=== PATIENT | female | born 1990 | race Caucasian/White ===

== ENCOUNTER 2016-05-06 09:20 | Inpatient (IN) | payer OTHER ==
[~2016-05-06] VITALS: Ht 160 cm; Wt 76.0 kg
[2016-05-06] VITALS (43 sets, daily range): BP systolic 125–165; BP diastolic 65–102
[~2016-05-06 09:20] MED LIST: /AUGM875TA OR; /CELE20CA OR; COLA100C2 OR; MILKSUS OR; VICO5TAB OR
[2016-05-06] MEDS ORDERED: ACET50TA PO (10:19)
[2016-05-06] MEDS ORDERED: PRENTAB9 PO (10:19)
--- NOTE | 2016-05-06 10:25 | IPNPDOC ---
Obstetrical Progress Note Date of Service The patient was seen on 05/06/16 at 10:17. Progress Note BRIEF SUMMARY OF LABOR AND DELIVERY: Patient is a 25 year-old G1 sent from clinic for elevated blood pressure of 134/90 and a dull CAMPOS. LABS AND OTHER LABS ORDERED THIS ADMISSION: Pre-e labs ordered SUBJECTIVE: Patient reports a dull CAMPOS without visual changes. States she has irregular CTXs that have not changed over the past week. She denies LOF, DFM, and VB. OBJECTIVE: VS- mild range BP, all other VS WNL, afebrile FHR- BL-120, moderate variability, + accels, no decels CTX- Q 1-3 min, lasting <90 sec, unable to palpate, Resting tone palpated as soft. CURRENT LABS: Please see below. ASSESSMENT: 25 yo G1 @ 38+2 by LMP([id number]) presents to L&D with mild range blood pressures. PLAN: continue to monitor and assess, serial blood pressures, pre-e labs, tylenol for CAMPOS, reassess in 2 hours or prn ALYCIA ORTIZ CNM May 06, 2016 10:25
[2016-05-06] MEDS: ACETAMINOPHEN 500 MG TAB PO ONE ×2 (10:30→10:52)
[2016-05-06 10:59] LABS: ALT/SGPT 11 U/L (12-78); AST/SGOT 13 U/L (15-37); BILIRUBIN,TOTAL 0.4 MG/DL (0.2-1.0); CREATININE FOR GFR 0.58 MG/DL (0.55-1.02); GLOMERULAR FILTRATION RATE > 60.0 (>60); URIC ACID 2.9 MG/DL (2.6-6.0)
[2016-05-06 12:13] LABS: MEAN CORPUSCULAR HEMOGLOBIN 26.7 pg (27.0-33.0); MEAN CORPUSCULAR HGB CONC 33.9 g/dl (32.0-36.5); MEAN CORPUSCULAR VOLUME 78.8 fl (80.0-96.0); WHITE BLOOD COUNT 9.7 K/mm3 (4.0-10.0)
--- NOTE | 2016-05-06 14:51 | HPEPDOC ---
Obstetrical History & Physical General Date of Admission May 06, 2016 at 13:58 History of Present Illness 25 yo G1 @ 38+2 by LMP([id number]) presents to L&D with mild range blood pressures. Labs drawn PCR-0.34. Admitted to L&D for pre-e without severe features. GBS neg. Denies DFM, LOF, CTXs and VB. Chief Complaint: Pre-eclamsia Information Provided By: Patient Age: 25 : 1 Term: 0 Pre-term: 0 Abortions: 0 Livin Care Care: Good Care Dating Final EDC: May 18, 2016 Final EDC for Daily Update: May 18, 2016 Final EDC by: LMP LMP: August 12, 2015 Estimated Date of Confinement: May 18, 2016 EGA at Admission: 38.2 Antepartum Course Diagnos(e)s 1. Rh negative- Rhogam given on [id number] 2. 34 wk HERBERT 3. pre-e without severe features 4. 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 GERD 2. IBS Surgical History: Appendectomy (2010), Regan teeth (2010) Family History Significant Family History: No pertinent family hx Social History Marital Status: Family situation: Spouse/partner home Psychosocial History: No pertinent psych hx * Smoker: non-smoker Alcohol: denies Drugs: denies Abuse Violence Screening Have you been hit/kicked/slapp: No Have you been sexually assault: No Imunizations Tdap status: current ([id number]) Influenza Status: current ([id number]) Allergies Coded Allergies: No Known Drug Allergy (Verified Allergy, Unknown, 06/24/12) Medications Scheduled Multivitamins/ ( 27-0.8 mg) 1 Tab Tab 1 TAB PO DAILY Miscellaneous Medications Acetaminophen (Mapap) 500 Mg Tab 1,000 MG PO HEADACHE Physical Examination Physical Examination GENERAL: A&O x 3 BREAST: . ABDOMEN: Gravid non-tender EFW: 3200 grams FETUS: VTX by SVE and by Stefan. HEART RATE: RRR, no m/r/g LUNGS: CTA EXTREMITIES: +2 edema bilat LE. No clonus. DTRs +2 Vital Signs/I&O Vital Signs Date Time Temp Pulse Resp B/P Pulse Ox O2 Delivery O2 Flow Rate FiO2 05/06/16 11:14 71 16 135/86 05/06/16 09:47 98.7 Laboratory Data 24H LABS Laboratory Tests 2 05/06/16 10:24: Creatinine 0.58, Aspartate Amino Transf (AST/SGOT) 13L, Alanine Aminotransferase (ALT/SGPT) 11L, Lactate Dehydrogenase 185, Total Bilirubin 0.4 , Uric Acid 2.9, Glomerular Filtration Rate > 60.0 05/06/16 10:25: Syphilis Serology NONREACTIVE 05/06/16 11:13: Urine Random Creatinine 60.9, Urine Random Total Protein 21.3H 05/06/16 14:31: Serology Scanned Report Hepatitis B Testing CBC/BMP Laboratory Tests 05/06/16 10:22 Red Blood Count 3.73 L, Mean Corpuscular Volume 78.8 L, Mean Corpuscular Hemoglobin 26.7 L, Mean Corpuscular Hemoglobin Concent 33.9, Red Cell Distribution Width 15.0 H 05/06/16 10:24 Aspartate Amino Transf (AST/SGOT) 13 L, Alanine Aminotransferase (ALT/SGPT) 11 L , Lactate Dehydrogenase 185, Total Bilirubin 0.4, Uric Acid 2.9 Urine Culture: No Growth Pertinent Laboratoy Data Blood Type: O- RBC Antibody Screen: Negative HIV: Negative Hepatitis B: Negative Hepatitis C: Unknown Rapid Plasma Reagin: Nonreactive Rubella: Immune Chlamydia/Gonorrhea: Negative Group B Streptococcus: Negative Quad Screen Test: Declined Cystic Fibrosis: Unknown Glucose Tolerance Test: 95 Anatomy Ultrasound Ultrasound Date: Dec 19, 2015 Placenta Location: Posterior Normal Anatomy: No (unable to evaluate d/t gestational age) Placenta Previa: No Estimated Weight (grams): 233 Other Ultrasounds Other Ultrasounds [id number] grams; 31%; normal anatomy; placenta posterior and fundal, no previa Steroid Therapy Steroid Therapy: No Vaginal Examination Dilation: 1cm Effacement: 75% Station: -2 Cervical Consistency: Medium Cervical Position: Posterior Presentation: Cephalic presentation Position: Vertex (occiput) Assessment Heart Rate (FHR): 135 Variability: Moderate Accelerations: Positive Decelerations: None Tocometer Contractions: Yes Frequency: irregular Duration: less than 90 seconds Strength: palpated as mild, resting tone palp/soft Multi-drug resistant Organism: No history of MDRO Assessment/Plan Assessment 25 yo G1 @ 38+2 by LMP([id number]) presents to L&D with mild range blood pressures. Labs drawn PCR-0.34. Admitted to L&D for pre-e without severe features. GBS neg. Denies DFM, LOF, CTXs and VB. 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 Diet: regular GBS negative Labs and IV per unit protocol Q 12 hour pre-e panel LR 1000 ml bolus once in active labor and then 125 ml/hr Ramos bulb to be placed now with 60 ml NS Anticipate C-S as appropriate. ALYCIA ORTIZ CNM May 06, 2016 14:51
--- NOTE | 2016-05-06 15:07 | IPNPDOC ---
Obstetrical Progress Note Date of Service The patient was seen on 05/06/16 at 15:03. Progress Note [id number] @ 1500 25 yo G1 @ 38+2 by LMP([id number]) presents to L&D with mild range blood pressures. Labs drawn PCR-0.34. Admitted to L&D for pre-e without severe features. GBS neg. Denies DFM, LOF, CTXs and VB. S: Denies CAMPOS, visual changes, n/v and RUQ pain O: Mild range blood pressures noted. All other VS WNL. Rincon bulb placed to traction with 60 ml NS A: 25 yo G1 @ 38+2 by LMP([id number]) IOL d/t pre-e without severe features. CAT I FHR tracing. P: continue to monitor and assess, reassess Q 1 hour rincon bulb, remove rincon bulb in 12 hours if not expelled, initiate magnesium if BP > 160 or 110, reassess in 4 hours or prn VS, I&O, 24H, [facility] Vital Signs/I&O Vital Signs Date Time Temp Pulse Resp B/P Pulse Ox O2 Delivery O2 Flow Rate FiO2 05/06/16 14:48 86 16 139/80 05/06/16 09:47 98.7 Laboratory Data 24H LABS Laboratory Tests 2 05/06/16 10:24: Creatinine 0.58, Aspartate Amino Transf (AST/SGOT) 13L, Alanine Aminotransferase (ALT/SGPT) 11L, Lactate Dehydrogenase 185, Total Bilirubin 0.4 , Uric Acid 2.9, Glomerular Filtration Rate > 60.0 05/06/16 10:25: Syphilis Serology NONREACTIVE 05/06/16 11:13: Urine Random Creatinine 60.9, Urine Random Total Protein 21.3H 05/06/16 14:31: Serology Scanned Report Hepatitis B Testing CBC/BMP Laboratory Tests 05/06/16 10:22 Red Blood Count 3.73 L, Mean Corpuscular Volume 78.8 L, Mean Corpuscular Hemoglobin 26.7 L, Mean Corpuscular Hemoglobin Concent 33.9, Red Cell Distribution Width 15.0 H 05/06/16 10:24 Aspartate Amino Transf (AST/SGOT) 13 L, Alanine Aminotransferase (ALT/SGPT) 11 L , Lactate Dehydrogenase 185, Total Bilirubin 0.4, Uric Acid 2.9 ALYCIA ORTIZM May 06, 2016 15:07
[2016-05-06] MEDS ORDERED: LR 1,000 ML IV SCH (18:57)
[2016-05-06] MEDS ORDERED: OXYTOCIN DRIP 30 UNITS in APPROPRIATE DILUENT 1 EA IV SCH (19:00)
--- NOTE | 2016-05-06 19:04 | IPNPDOC ---
Obstetrical Progress Note Date of Service The patient was seen on 05/06/16 at 18:59. Progress Note [id number] @ 1850 25 yo G1 @ 38+2 by LMP([id number]) presents to L&D with mild range blood pressures. Labs drawn PCR-0.34. Admitted to L&D for pre-e without severe features. GBS neg. S: Comfortable resting in bed. Denies CAMPOS, visual changes, n/v and RUQ pain O: VS- mild range blood pressures mixed with normal blood pressures, all other VS WNL, afebrile FHR- BL 125, moderate variability, + accels, no decels CTX- irregular and intermittent SVE- deferred Rincon removed intact A: 25 yo G1 @ 38+2 by LMP with pre-e without severe features. CAT I FHR tracing. Cervical change noted with rincon coming out. P: continue to monitor and assess, reassess in 2 hours or prn, initiate pitocin IOL, report any severe range blood pressures, epidural when pt desires. Report given to Dr. Vann @ 1930. VS, I&O, 24H, [facility] Vital Signs/I&O Vital Signs Date Time Temp Pulse Resp B/P Pulse Ox O2 Delivery O2 Flow Rate FiO2 05/06/16 18:40 73 16 126/80 05/06/16 09:47 98.7 Laboratory Data 24H LABS Laboratory Tests 2 05/06/16 10:24: Creatinine 0.58, Aspartate Amino Transf (AST/SGOT) 13L, Alanine Aminotransferase (ALT/SGPT) 11L, Lactate Dehydrogenase 185, Total Bilirubin 0.4 , Uric Acid 2.9, Glomerular Filtration Rate > 60.0 05/06/16 10:25: Syphilis Serology NONREACTIVE 05/06/16 11:13: Urine Random Creatinine 60.9, Urine Random Total Protein 21.3H 05/06/16 14:31: Serology Scanned Report Hepatitis B Testing CBC/BMP Laboratory Tests 05/06/16 10:22 Red Blood Count 3.73 L, Mean Corpuscular Volume 78.8 L, Mean Corpuscular Hemoglobin 26.7 L, Mean Corpuscular Hemoglobin Concent 33.9, Red Cell Distribution Width 15.0 H 05/06/16 10:24 Aspartate Amino Transf (AST/SGOT) 13 L, Alanine Aminotransferase (ALT/SGPT) 11 L , Lactate Dehydrogenase 185, Total Bilirubin 0.4, Uric Acid 2.9 ALYCIA ORTIZ CNM May 06, 2016 19:04
[2016-05-06] MEDS ORDERED: ACETAMINOPHEN TAB 650MG DOSE (2X325MG) PO ONE (20:30)
--- NOTE | 2016-05-06 23:54 | IPNPDOC ---
Text Note Date of Service The patient was seen on 05/06/16. NOTE Assumed care at 1930 after SBAR from [facility] BP's with some mild range elevations, no severe range for many hours. No CAMPOS, responded to tylenol. NST Cat 1, reg ctx's, pit at 12 mu/min Cx 4/75/-3/vtx well applied a/p: Doing well, but not active labor yet. Plan on recheck in ~4 hrs, sooner prn. Sessions VS,Rossy, I+O VSRossy I+O Laboratory Tests 05/06/16 10:22 Red Blood Count 3.73 L, Mean Corpuscular Volume 78.8 L, Mean Corpuscular Hemoglobin 26.7 L, Mean Corpuscular Hemoglobin Concent 33.9, Red Cell Distribution Width 15.0 H 05/06/16 10:24 Aspartate Amino Transf (AST/SGOT) 13 L, Alanine Aminotransferase (ALT/SGPT) 11 L , Lactate Dehydrogenase 185, Total Bilirubin 0.4, Uric Acid 2.9 Vital Signs Date Time Temp Pulse Resp B/P Pulse Ox O2 Delivery O2 Flow Rate FiO2 05/06/16 23:11 97.8 67 16 136/74 SESSIONS,ELANA Blackwood MD May 06, 2016 23:54
[2016-05-07] VITALS (25 sets, daily range): BP systolic 126–195; BP diastolic 69–95
[2016-05-07] MEDS ORDERED: FENTANYL 2MCG/ML ROPIVACAINE 0.2% NACL 250 ML CADD As Ordered ONE (02:02)
[2016-05-07] MEDS ORDERED: NALOXONE INJ 0.4 MG/1 ML VIAL (J2310) IV PRN (03:00)
[2016-05-07] MEDS ORDERED: EPIDURAL COMMENT XX SCH (03:00)
[2016-05-07] MEDS ORDERED: diphenhydrAMINE INJ 50MG/ML VIAL (J1200) IV PRN (03:00)
[2016-05-07] MEDS ORDERED: FENTANYL/ROPIVACAINE/NACL CADD 250 ML EPIDURAL SCH (03:00)
[2016-05-07] MEDS ORDERED: EPIDURAL/PCA KEYS XX PRN (03:00)
[2016-05-07] MEDS ORDERED: REFRIGERATOR IV KEYS XX PRN (03:00)
[2016-05-07] MEDS ORDERED: LACTATED RINGER'S 1000 ML IV PRN (03:00)
[2016-05-07] MEDS ORDERED: ONDANSETRON 4MG/2ML VIAL (J2405) IV PRN (03:00)
--- NOTE | 2016-05-07 05:01 | IPNPDOC ---
Text Note Date of Service The patient was seen on 05/07/16. NOTE Now s/p epidural. Was 4-5 ~2 hrs ago after sergey (RN check) SROM at 0320, clr NST Cat 1, on 12 mu/min pitocin Cx /-1 recheck in 2 hrs, sooner prn Sessions MD CURRAN,Rossy, I+O VS, Rossy I+O Laboratory Tests 05/06/16 10:22 Red Blood Count 3.73 L, Mean Corpuscular Volume 78.8 L, Mean Corpuscular Hemoglobin 26.7 L, Mean Corpuscular Hemoglobin Concent 33.9, Red Cell Distribution Width 15.0 H 05/06/16 10:24 Aspartate Amino Transf (AST/SGOT) 13 L, Alanine Aminotransferase (ALT/SGPT) 11 L , Lactate Dehydrogenase 185, Total Bilirubin 0.4, Uric Acid 2.9 Vital Signs Date Time Temp Pulse Resp B/P Pulse Ox O2 Delivery O2 Flow Rate FiO2 05/07/16 04:24 99.4 81 18 141/78 SESSIONS,ELANA Blackwood MD May 07, 2016 05:00
[2016-05-07] MEDS ORDERED: OXYTOCIN DRIP 30 UNITS in APPROPRIATE DILUENT 1 EA IV SCH (08:31)
--- NOTE | 2016-05-07 08:39 | DNPDOC ---
Delivery Note Delivery Note DATE OF DELIVERY: May 06, 2016 at 13:58 PREDELIVERY DIAGNOSIS: 38 3/7 weeks' gestation and labor. Mild Pre-Eclampsia. POST DELIVERY DIAGNOSIS: Delivered. PROCEDURE: Spontaneous vaginal delivery TIRE FIXER: Dr. Whitman ANESTHESIA: Epidural ESTIMATED BLOOD LOSS: 300 mL. FINDINGS: 7 pound 8 ounce male infant, Score 8/9 DELIVERY SUMMARY: Called to room, C/C/+3 great effort. No delay of the vtx or the bilat shuolders, restituted to STEVEN. Good cry and tone, to mother's abd. Cord C/C by FOB. Cord blood. Placenta intact with slight traction and massage. Pit going, fundus firm. 1st degr lac repaired in standard fashion with 3-0 vicryl. Good cosmesis/hemostasis. A few small stellate stretch lacs present but not bleeding, left alone. Sessions MD WHITMAN,ELANA Blackwood MD May 07, 2016 08:39
[2016-05-07] MEDS ORDERED: METOCLOPRAMIDE INJ 10MG/2ML VIAL (J2765) IV PRN (08:45)
[2016-05-07] MEDS ORDERED: RHOGAM 300 MCG (1500 IU) INJ (J2790) IM SCH (08:45)
[2016-05-07] MEDS ORDERED: MEASLES,MUMPS,RUBELLA VACCINE INJ (MMR-II) (90707) SC SCH (08:45)
[2016-05-07] MEDS ORDERED: DIBUCAINE 1% OINTMENT 30GM TOP PRN (08:45)
[2016-05-07] MEDS ORDERED: ACETAMINOPHEN TAB 650MG DOSE (2X325MG) PO PRN (08:45)
[2016-05-07] MEDS: PRENATAL VITAMIN TAB PO SCH (09:10)
[2016-05-07] MEDS: DOCUSATE SODIUM 100 MG CAP PO SCH ×2 (09:10→21:55)
[2016-05-07] MEDS: IBUPROFEN 800 MG TAB PO PRN (14:17)
[2016-05-08 02:00] VITALS: BP 141/74
[2016-05-08 05:16] VITALS: BP 142/80
[2016-05-08] MEDS: DOCUSATE SODIUM 100 MG CAP PO SCH ×2 (08:51→21:37)
[2016-05-08] MEDS: PRENATAL VITAMIN TAB PO SCH (08:51)
[2016-05-08] MEDS: IBUPROFEN 800 MG TAB PO PRN (08:56)
[2016-05-08 10:00] VITALS: BP 126/58
[2016-05-08 14:00] VITALS: BP 138/84
[2016-05-08 18:16] VITALS: BP 145/80
[2016-05-08 21:54] VITALS: BP 122/73
[2016-05-09 01:50] VITALS: BP 136/72
[2016-05-09 05:29] VITALS: BP 125/78
[2016-05-09] MEDS: DOCUSATE SODIUM 100 MG CAP PO SCH (08:10)
[2016-05-09] MEDS: PRENATAL VITAMIN TAB PO SCH (08:10)
[2016-05-09] MEDS ORDERED: ACET50TA PO (09:34)
[2016-05-09] MEDS ORDERED: IBUP-1114 PO (09:34)
[2016-05-09] MEDS ORDERED: COLA100C PO (09:34)
[2016-05-09] MEDS ORDERED: NUPE1OIN2 TOP (09:36)
[2016-05-09 10:00] VITALS: BP 153/87
--- NOTE | 2016-05-09 12:40 | IPN ---
DATE: 05/08/2016 This lady and have requested circumcision of their male . After discussing risks and benefits of circumcision, penile block, and aftercare, they expressed understanding of the aftercare and penile block, signed and witnessed the consent form. We await the clearance by the radiology assistant.
--- NOTE | 2016-05-09 13:07 | IPN ---
DATE OF SERVICE: 05/08/2016 DAY #1: This lady delivered at 38-3/7 weeks of gestation with mild preeclampsia. She had a live male , 7 pounds 8 ounces, scores of 8 and 9 at one and five minutes respectively. She had a first-degree laceration, which was repaired. On her first day, we discussed phlebitis, cystitis, mastitis, endometritis, cellulitis, diet, exercise, pain management, perineal, breast, and wound care. She is planning on having oral contraceptives for a six week contraceptive counseling appointment. Today, her blood pressure is 142/80, respirations 16, pulse of 105, temperature is 98.5. She was admitted with a history of pre-eclampsia, with no medications. Her laboratory work indicated her hemoglobin was 10.0, hematocrit at 29.4, and platelets are 199. Her chemistry indicated her uric acid was 2.9, her protein creatinine ratio was 0.034. Presently, she is normoreflexic. No evidence of headache, spotting. No evidence of right upper quadrant pain. No edema. No other signs of pre-eclampsia. Reflexes are normal. The patient is anxious to go home tomorrow. The rest of the examination is unremarkable. Chest is clear bilaterally bases. Heart sounds are normal. No murmurs. No extra rhythms. Abdomen is soft. Uterus two below. Lochia is moderate. No evidence of deep venous thrombosis (DVT), pulmonary embolism (PE), or superficial phlebitis. Breast examination is unremarkable. The patient is doing well, voiding, passing gas and has had a bowel movement.
== END 2016-05-09 11:30 | disposition home or self-care (01) | DRG 775 ==
LOC: M LDO 09:20 → M LDI 13:58 → M OBS 05-07 12:03
PROVIDERS: ADMIT Midwife; ATTEND Midwife
PROC: 10E0XZZ Delivery of Products of Conception, External Approach (ICD-10-PCS; principal; 2016-05-06)
PROC: 0HQ9XZZ Repair Perineum Skin, External Approach (ICD-10-PCS; 2016-05-06)
DX: O14.04 Mild to moderate pre-eclampsia, complicating childbirth (principal); Z37.0 Single live birth; Z3A.38 38 weeks gestation of pregnancy; O70.0 First degree perineal laceration during delivery

== ENCOUNTER 2017-10-01 09:45 | Inpatient (IN) | payer OTHER, SELFPAY ==
[2017-10-01] MEDS: OXYTOCIN INJ 10 UNITS/ML VIAL (J2590) IM ×3 (10:04)
[2017-10-01] MEDS: LIDOCAINE 1% MDV 20ML VIAL INFIL ×3 (10:07)
[2017-10-01 10:42] LABS: HEMATOCRIT 34.2 % (36.0-47.0); MEAN CORPUSCULAR HEMOGLOBIN 25.5 pg (27.0-33.0); MEAN CORPUSCULAR HGB CONC 32.2 g/dl (32.0-36.5); MEAN CORPUSCULAR VOLUME 79.4 fl (80.0-96.0); PLATELET COUNT, AUTOMATED 192 10^3/uL (150-450); RED BLOOD COUNT 4.31 10^6/uL (4.00-5.40); RED CELL DISTRIBUTION WIDTH 16.1 % (11.5-14.5); WHITE BLOOD COUNT 14.4 10^3/uL (4.0-10.0)
[2017-10-01] MEDS ORDERED: DIBUCAINE 1% OINTMENT 30GM TOP ×3 (11:00)
[2017-10-01] MEDS ORDERED: METOCLOPRAMIDE INJ 10MG/2ML VIAL (J2765) IV ×3 (11:00)
[2017-10-01] MEDS: IBUPROFEN 800 MG TAB PO ×3 (11:13)
[2017-10-01] MEDS: MEASLES,MUMPS,RUBELLA VACCINE INJ (MMR-II) (90707) SC ×3 (12:20)
[2017-10-01] MEDS: DOCUSATE SODIUM 100 MG CAP PO ×3 (20:56)
[2017-10-02] MEDS: PRENATAL VITAMINS CHEWABLE TABLET PO ×3 (07:55)
[2017-10-02] MEDS: IBUPROFEN 800 MG TAB PO ×3 (07:55)
[2017-10-02] MEDS: DOCUSATE SODIUM 100 MG CAP PO ×6 (07:55→20:29)
[2017-10-03] MEDS: PRENATAL VITAMINS CHEWABLE TABLET PO ×3 (08:53)
[2017-10-03] MEDS: DOCUSATE SODIUM 100 MG CAP PO ×3 (08:53)
[2017-10-03 08:58] LABS: FETAL SCREEN PROF. 1 1
[2017-10-03] MEDS: RHOGAM 300 MCG (1500 IU) INJ (J2790) IM ×3 (09:08)
== END 2017-10-03 12:15 | disposition home or self-care (01) | DRG 775 ==
LOC: M LDO 09:45 → M LDI 10:00 → M OBS 12:45
PROVIDERS: Obstetrics & Gynecology
PROC: 10E0XZZ Delivery of Products of Conception, External Approach (ICD-10-PCS; principal; 2017-10-01)
PROC: 0KQM0ZZ Repair Perineum Muscle, Open Approach (ICD-10-PCS; 2017-10-01)
DX: O69.89X0 Labor and delivery complicated by other cord complications, not applicable or unspecified (principal); Z37.0 Single live birth; Z3A.38 38 weeks gestation of pregnancy; O99.820 Streptococcus B carrier state complicating pregnancy; O70.1 Second degree perineal laceration during delivery

== ENCOUNTER → 2021-03-19 | Outpatient (REF) ==
[~2021-03-19] MED LIST changes: -/CELE20CA OR; +CELE1CAP4 OR; +COLA100C5 PO; +IBUP-1114 PO; +MAPA500T2 PO; +NUPE1OIN2 TOP; +PRENTAB9 PO
[2021-03-19 12:46] LABS: RSV AMPLIFICATION NEGATIVE (NEGATIVE)
== END ==
LOC: M LABSMTC 09:15
PROVIDERS: ATTEND Family Medicine
DX: Z20.822 Contact with and (suspected) exposure to COVID-19 (principal)

== ENCOUNTER 2021-07-24 11:46 | Inpatient (IN) | payer OTHER ==
[~2021-07-24] VITALS: Ht 160 cm; Wt 83.0 kg
[2021-07-24] VITALS (21 sets, daily range): BP systolic 99–139; BP diastolic 53–84
[2021-07-24] MEDS ORDERED: ACET325C5 PO (11:56)
[2021-07-24] MEDS ORDERED: PEPC40TA12 PO (11:56)
[2021-07-24] MEDS ORDERED: HOME MED LIST COMPLETE! XX SCH (12:00)
[2021-07-24 13:05] LABS: HEMATOCRIT 30.3 % (36.0-47.0); HEMOGLOBIN 9.5 g/dl (12.0-15.5); MEAN CORPUSCULAR HEMOGLOBIN 24.4 pg (27.0-33.0); MEAN CORPUSCULAR HGB CONC 31.4 g/dl (32.0-36.5); MEAN CORPUSCULAR VOLUME 77.9 fl (80.0-96.0); PLATELET COUNT, AUTOMATED 183 10^3/uL (150-450); RED BLOOD COUNT 3.89 10^6/uL (4.00-5.40); WHITE BLOOD COUNT 8.8 10^3/uL (4.0-10.0)
[2021-07-24] MEDS ORDERED: OXYTOCIN DRIP 30 UNITS in IV 1 EA IV PRN ×4 (13:05)
[2021-07-24] MEDS ORDERED: miSOPROStol 50MCG 1/2 TABLET PO ONE (13:05)
[2021-07-24] MEDS: LR 1,000 ML IV SCH ×2 (15:42→19:52)
[2021-07-24] MEDS ORDERED: LIDOCAINE 1% MDV 20ML VIAL INFIL PRN (18:30)
[2021-07-24] MEDS ORDERED: OXYTOCIN DRIP 30 UNITS in IV 1 EA IV SCH (18:30)
[2021-07-24] MEDS ORDERED: FENTANYL 2MCG/ML ROPIVACAINE 0.2% IN 0.9% NACL 100ML IVBAG As Ordered ONE (20:11)
[2021-07-24] MEDS ORDERED: FENTANYL/ROPIVACAINE/NACL BAG 100 ML EPIDURAL SCH (21:15)
[2021-07-24] MEDS ORDERED: LACTATED RINGER'S 1000 ML IV PRN (21:15)
[2021-07-24] MEDS ORDERED: diphenhydrAMINE 50MG/ML VIAL (J1200) IV PRN (21:15)
[2021-07-24] MEDS ORDERED: EPIDURAL/PCA KEYS XX PRN (21:15)
[2021-07-24] MEDS ORDERED: NALOXONE INJ 0.4MG/1ML VIAL (J2310 PER 1MG) IV PRN (21:15)
[2021-07-24] MEDS ORDERED: ONDANSETRON 4MG/2ML VIAL IV PRN ×2 (21:15→21:30)
[2021-07-24] MEDS ORDERED: ePHEDrine SULFATE 25 MG/5 ML(5MG/ML) SYRINGE IV PRN (21:15)
[2021-07-24] MEDS ORDERED: REFRIGERATOR IV KEYS XX PRN (21:15)
[2021-07-24] MEDS ORDERED: EPIDURAL COMMENT XX SCH (21:15)
[2021-07-24 21:29] LABS: CORD GAS ABE A -4.6; CORD GAS HCO3 A 23.3 MEQ/L; CORD GAS O2 SAT A 36.7 %; CORD GAS PH A 7.252 UNITS; CORD GAS PO2 A 18.9 mmHg; CORD GAS SBC A 19.3 MEQ/L; CORD GAS TCO2 A 24.9 MEQ/L
[2021-07-24 21:30] LABS: CORD GAS ABE V -2.5; CORD GAS HCO3 V 21.8 MEQ/L; CORD GAS O2 SAT V 75.2 %; CORD GAS PCO2 V 36.2 mmHg; CORD GAS PH V 7.397 UNITS; CORD GAS SBC V 21.9 MEQ/L; CORD GAS TCO2 V 22.9 MEQ/L
[2021-07-24] MEDS ORDERED: DOCUSATE SODIUM 100MG CAPSULE PO PRN (21:30)
[2021-07-24] MEDS ORDERED: LR 1,000 ML IV SCH (21:30)
[2021-07-24] MEDS ORDERED: PROMETHAZINE 25 MG TAB PO PRN (21:30)
[2021-07-24] MEDS ORDERED: METHYLERGONOVINE MALEATE 0.2 MG TAB PO PRN (21:30)
[2021-07-24] MEDS ORDERED: RHOGAM 300 MCG (1500 IU) INJ (J2790) IM SCH (21:30)
[2021-07-24] MEDS ORDERED: DIBUCAINE 1% OINTMENT 30GM TOP PRN (21:30)
[2021-07-24] MEDS ORDERED: MEASLES,MUMPS,RUBELLA VACCINE INJ (MMR-II) (90707) SC SCH (21:30)
[2021-07-24] MEDS: ACETAMINOPHEN 500 MG TAB PO SCH (21:55)
[2021-07-24] MEDS: IBUPROFEN 800 MG TAB PO SCH (21:55)
[2021-07-25] MEDS: ACETAMINOPHEN 500 MG TAB PO SCH ×4 (04:51→22:00)
[2021-07-25 05:29] VITALS: BP 107/56
[2021-07-25] MEDS: IBUPROFEN 800 MG TAB PO SCH ×3 (06:08→22:00)
[2021-07-25] MEDS: PRENATAL VITAMINS CHEWABLE TABLET PO SCH (07:46)
[2021-07-25 07:49] LABS: HEMATOCRIT 28.4 % (36.0-47.0); HEMOGLOBIN 8.9 g/dl (12.0-15.5); MEAN CORPUSCULAR HEMOGLOBIN 24.7 pg (27.0-33.0); MEAN CORPUSCULAR HGB CONC 31.3 g/dl (32.0-36.5); MEAN CORPUSCULAR VOLUME 78.9 fl (80.0-96.0); PLATELET COUNT, AUTOMATED 179 10^3/uL (150-450); WHITE BLOOD COUNT 11.1 10^3/uL (4.0-10.0)
[2021-07-25] MEDS ORDERED: PRENATAL VITAMINS CHEWABLE TABLET PO SCH (09:00)
[2021-07-25 18:00] VITALS: BP 129/61
[2021-07-26] MEDS: IBUPROFEN 800 MG TAB PO SCH (05:11)
[2021-07-26] MEDS: ACETAMINOPHEN 500 MG TAB PO SCH ×2 (05:11→09:10)
[2021-07-26 05:20] VITALS: BP 121/62
[2021-07-26] MEDS: PRENATAL VITAMINS CHEWABLE TABLET PO SCH (09:09)
== END 2021-07-26 11:41 | disposition home or self-care (01) | DRG 806 ==
LOC: M LDI 11:46 → M OBS 23:00
PROVIDERS: ADMIT Obstetrics & Gynecology; ATTEND Obstetrics & Gynecology
PROC: 10E0XZZ Delivery of Products of Conception, External Approach (ICD-10-PCS; principal; 2021-07-24)
DX: O48.0 Post-term pregnancy (principal); Z37.0 Single live birth; O41.03X0 Oligohydramnios, third trimester, not applicable or unspecified; Z3A.40 40 weeks gestation of pregnancy; O69.81X0 Labor and delivery complicated by cord around neck, without compression, not applicable or unspecified

== ENCOUNTER → 2023-02-17 | Outpatient (REF) ==
[~2023-02-17] MED LIST changes: +ACET325C5 PO; +PEPC40TA12 PO
== END ==
LOC: M EMP 17:19
PROVIDERS: ATTEND Family Medicine
DX: Z11.52 Encounter for screening for COVID-19 (principal)